=== PATIENT | male | born 1980 | race Two or more races ===

== ENCOUNTER 2017-03-06 17:21 | Emergency (ER) | payer SELFPAY ==
[~2017-03-06] VITALS: Ht 170.2 cm; Wt 180.0 kg
[2017-03-06 17:23] VITALS: BP 130/76; PULSE 82; RESP 18; TEMP 98.6; O2SAT 98
[2017-03-06] MEDS ORDERED: AMOX875T PO (19:54)
--- NOTE | 2017-03-06 20:04 | PD ---
HPI Chief Complaint: ENT Complaint Time Seen by Provider: 19:46 Travel History International Travel<30 days: No Contact w/Intl Traveler<30days: No Traveled to known affect area: No History of Present Illness HPI 36-year-old male presents to the emergency room for evaluation of right ear pain for the past 5 or 6 days. Patient is [place] speaking and air and water tester was used throughout history and physical exam. States he developed severe right ear pain without any drainage. Pain radiated into his face. He has not taken anything for symptoms. Denies fever, chills, nausea, vomiting, cough, congestion, or sore throat. Chronic medical conditions or daily medications. PFSH Past Medical History Medical History: Denies Significant Hx Diminished Hearing: No Past Surgical History Surgical History: No Previous Surgery Social History Alcohol Use: No Tobacco Use: No Substance Use: No Allergies-Medications Reported Meds & Prescriptions Reported Meds & Active Scripts Active Amoxicillin 875 Mg Tab 875 Mg PO BID 7 Days Review of Systems Except as stated in HPI: all other systems reviewed are Neg Physical Exam Narrative GENERAL: Well-nourished, well-developed male in no acute distress. Afebrile. Ambulatory. SKIN: Focused skin assessment warm/dry. HEAD: Normocephalic. EYES: No scleral icterus. No injection or drainage. NECK: Supple, trachea midline. No JVD or lymphadenopathy. EARS: Bilateral pinnae and external canals appear within normal limits. Left tympanic membrane without erythema, dullness or perforation. Right tympanic membrane is extremely erythematous and dull with obvious effusion. No perforation. CARDIOVASCULAR: Regular rate and rhythm without murmurs, gallops, or rubs. RESPIRATORY: Breath sounds equal bilaterally. No accessory muscle use. No crackles, rales, wheezes, or rhonchi. Data Data Last Documented VS Vital Signs Date Time Temp Pulse Resp B/P (MAP) Pulse Ox O2 Delivery O2 Flow Rate FiO2 03/06/17 17:23 98.6 82 18 130/76 (94) 98 Room Air MDM Medical Decision Making Medical Screen Exam Complete: Yes Emergency Medical Condition: Yes Medical Record Reviewed: Yes Differential Diagnosis Otitis media, otitis externa, eustachian tube dysfunction Narrative Course 36-year-old male presents to the emergency room for evaluation of ear pain for 5 days. He is [place]-speaking and air and water tester was used throughout history and physical exam. No fevers or other upper respiratory symptoms. Physical exam reveals right tympanic membrane is extremely erythematous and dull with obvious effusion. No perforation. Drained pain with insertion of the otoscope. This is otitis media. Patient discharged with prescription for amoxicillin and told to follow up with PCP or return for worsening symptoms. He understands and agrees to plan. Diagnosis Primary Impression: Right otitis media with effusion Referrals: Primary Care Physician Additional Instructions: Rest and drink plenty of fluids. Take amoxicillin as directed, until gone. Follow up with a primary care physician. Return to emergency room for worsening symptoms, as discussed. Med/Other Pt SpecificInfo: Prescription(s) given Scripts Amoxicillin (Amoxicillin) 875 Mg Tab 875 MG PO BID for Infection for 7 Days, #14 TAB 0 Refills Prov: Joaquin Lira MD 03/06/17 Disposition: 01 DISCHARGE HOME Condition: Stable Kasey Mulligan Mar 06, 2017 20:04
== END 2017-03-06 20:13 | disposition home or self-care (01) ==
LOC: NEPK 17:21
DX: H65.91 Unspecified nonsuppurative otitis media, right ear (principal)
CPT/HCPCS: 99283